=== PATIENT | female | born 1960 | race American Indian/Alaskan Native ===

== ENCOUNTER 2019-12-14 09:17 | Outpatient (CLI) | payer MEDICAID ==
--- NOTE | 2019-12-14 11:08 | Cat Scan Report ---
CT CERVICAL SPINE WITHOUT CONTRAST INDICATION: CERVICALGIA,RADICULAPATHY. TECHNIQUE: Axial imaging performed through the cervical spine without the use of contrast. Sagittal and coronal reconstructed images were also reviewed. All CT scans at this location are performed us ing CT dose reduction for ALARA by means of automated exposure control. COMPARISON: None FINDINGS: There is mild reversal of the normal cervical lordosis on the sagittal reconstructed images. There is normal alignment otherwise. Mild to moderate disc space narrowing and endplate spurring is identifie d at C4-5, C5-6 and C6-7. The facet joints and posterior elements are unremarkable. No significant ar thritic changes or hypertrophy. No evidence for fracture or bone lesion. C2-3: Minor bilateral uncovertebral spurring. No central canal or neural foraminal stenosis. C3-4: No significant abnormality. C4-5: Mild posterior and left uncovertebral spurring are identified. No central canal stenosis. Mild left neural foraminal narrowing is estimated at 25-50%. C5-6: Moderate posterior and bilateral uncovertebral spurring are identified. No central canal stenos is. Bilateral neural foraminal narrowing is estimated at 50%. C6-7: Moderate posterior and bilateral uncovertebral spurring is identified. No central canal stenosi s. Bilateral neural foraminal narrowing is estimated at 25-50%. C7-T1: No significant abnormality. Paraspinal soft tissues are unremarkable. IMPRESSION: Reversal of the normal cervical lordosis. Mild to moderate multilevel discogenic disc disease as described. C5-C6 appears to be the most affect ed level. No acute injury is appreciated. Signer Name: Duane Ortiz Jr, MD Signed: 12/14/2019 11:03 AM Workstation Name: [id number]
== END 2019-12-14 09:18 | disposition home or self-care (01) ==
LOC: CT 09:17
PROVIDERS: ATTEND Family Medicine
DX: M48.02 Spinal stenosis, cervical region (principal); M50.822 Other cervical disc disorders at C5-C6 level
CPT/HCPCS: 72125